=== PATIENT | female | born 1975 | race Two or more races ===

== ENCOUNTER 2021-02-06 06:11 | Day surgery (SDC) | payer BC, OTHER ==
[2021-02-05 12:22] VITALS: BMI 26.3
[2021-02-06] MEDS ORDERED: DEXMEDETOMIDINE HCL 200 MCG/2 ML IVPB ONE (06:45)
[2021-02-06] MEDS ORDERED: ceFAZolin SODIUM 1 GM VIAL ONE ×3 (06:50→17:23)
[2021-02-06] MEDS ORDERED: LIDOCAINE HCL/PF 2% SDV 5ML VIAL ONE ×2 (06:50→07:27)
[2021-02-06] MEDS ORDERED: MIDAZOLAM HCL 2 MG/2 ML SINGLE DOSE VIAL ONE (06:53)
[2021-02-06] MEDS ORDERED: fentaNYL CITRATE 250 MCG/5 ML VIAL ONE (06:53)
[2021-02-06] MEDS ORDERED: KETAMINE HCL 200 MG/20 ML VIAL ONE (06:53)
[2021-02-06] MEDS ORDERED: HEPARIN NA (PORCINE) 5,000 UNITS/ML 1ML VIAL ONE (06:54)
[2021-02-06] MEDS ORDERED: BUPIVACAINE HCL/PF 0.25% (2.5MG/ML) 10 ML VIAL ONE ×2 (07:24→08:41)
[2021-02-06] MEDS ORDERED: EPINEPHrine/PF 1 MG/1 ML (1:1,000) AMPULE ONE (07:25)
[2021-02-06] MEDS ORDERED: BUPIVACAINE LIPOSOME/PF (EXPAREL) 266 MG/20 ML VIAL ONE (07:26)
[2021-02-06] MEDS ORDERED: LIDOCAINE HCL 1%, 10 MG/ML (20ML VIAL) ONE (07:26)
[2021-02-06] MEDS ORDERED: ceFAZolin SODIUM 1 GM VIAL IVPB ONE ×2 (09:00→12:00)
[2021-02-06] MEDS ORDERED: EPHEDRINE SULFATE/0.9% NACL/PF 50 MG/10 ML SYRINGE NR ONE ×2 (09:39→14:12)
[2021-02-06] MEDS ORDERED: BUPIVACAINE HCL/PF 0.25% (2.5MG/ML) 10 ML VIAL IJ ONE (10:52)
[2021-02-06] MEDS ORDERED: BUPIVACAINE LIPOSOME/PF (EXPAREL) 266 MG/20 ML VIAL NR ONE (10:53)
[2021-02-06] MEDS ORDERED: EPINEPHrine/PF 1 MG/1 ML (1:1,000) AMPULE SQ ONE ×3 (10:53→13:56)
[2021-02-06] MEDS ORDERED: ROCURONIUM BROMIDE 50 MG/5 ML SYRINGE ONE (11:53)
[2021-02-06] MEDS ORDERED: NEOSTIGMINE METHYLSULFATE 0.5 MG/ML - 10 ML MDV ONE (11:58)
[2021-02-06] MEDS ORDERED: GLYCOPYRROLATE 0.2 MG/1 ML VIAL ONE (12:00)
[2021-02-06] MEDS ORDERED: PROMETHAZINE HCL 25 MG/1 ML VIAL IVPUSH PRN (15:42)
[2021-02-06] MEDS ORDERED: ACETAMINOPHEN 1000 MG/100 ML VIAL (NON FORMULARY) IVPB ONE (15:42)
[2021-02-06] MEDS ORDERED: ACETAMINOPHEN INJECTION 100 ML IVPB ONE (16:07)
[2021-02-06] MEDS: CEFAZOLIN 1 GM in DEXTROSE 5%-WATER - 50 ML IVPB SCH (17:30)
[2021-02-06] MEDS: LACTATED RINGERS SOLUTION 1,000 ML IV SCH (17:30)
[2021-02-06] MEDS: ONDANSETRON 4 MG/2 ML VIAL IVPB PRN (21:45)
[2021-02-06] MEDS: HEPARIN NA (PORCINE) 5,000 UNITS/ML 1ML VIAL SQ SCH (21:45)
[2021-02-06] MEDS: hydrOXYzine PAMOATE 25 MG CAPSULE (FP) PO SCH (21:46)
[2021-02-06] MEDS: MORPHINE SULFATE 2 MG/ML VIAL IVPUSH PRN (22:25)
[2021-02-07] MEDS ORDERED: ceFAZolin SODIUM 1 GM VIAL ONE ×3 (00:12→11:06)
[2021-02-07] MEDS ORDERED: DEXTROSE 5%-WATER - 50 ML IVPB ONE ×3 (00:12→11:06)
[2021-02-07] MEDS: CEFAZOLIN 1 GM in DEXTROSE 5%-WATER - 50 ML IVPB SCH ×3 (00:18→11:10)
[2021-02-07] MEDS: MORPHINE SULFATE 2 MG/ML VIAL IVPUSH PRN ×3 (02:31→11:09)
[2021-02-07] MEDS: VENLAFAXINE HCL 75 MG E.R. CAPSULES PO SCH (10:46)
[2021-02-07] MEDS: HEPARIN NA (PORCINE) 5,000 UNITS/ML 1ML VIAL SQ SCH ×2 (10:46→22:40)
[2021-02-07] MEDS: ONDANSETRON 4 MG/2 ML VIAL IVPB PRN (13:24)
[2021-02-07] MEDS: oxyCODONE HCL 5 MG TABLET PO PRN (18:11)
[2021-02-07] MEDS ORDERED: PT OWN MED DRAWER 7, Y5N ONE (20:58)
[2021-02-07] MEDS: LACTATED RINGERS SOLUTION 1,000 ML IV SCH (21:54)
[2021-02-07] MEDS: hydrOXYzine PAMOATE 25 MG CAPSULE (FP) PO SCH (22:40)
[2021-02-08] MEDS: oxyCODONE HCL 5 MG TABLET PO PRN ×3 (00:34→10:20)
[2021-02-08 10:17] VITALS: BP 137/83; PULSE 86; TEMP 98.3
[2021-02-08] MEDS ORDERED: PT OWN MED DRAWER 7, Y5N ONE (10:18)
[2021-02-08] MEDS: VENLAFAXINE HCL 75 MG E.R. CAPSULES PO SCH (10:19)
[2021-02-08] MEDS: HEPARIN NA (PORCINE) 5,000 UNITS/ML 1ML VIAL SQ SCH (10:21)
== END 2021-02-08 13:48 | disposition home or self-care (01) ==
LOC: JASUSAT 06:11 → EDBD 08:00 → J6S 18:04 → JASUSAT 02-08 13:48
PROVIDERS: ATTEND Plastic Surgery
PROC: 0J073ZZ Alteration of Back Subcutaneous Tissue and Fascia, Percutaneous Approach (ICD-10-PCS; 2021-02-06)
PROC: 0H0V0ZZ Alteration of Bilateral Breast, Open Approach (ICD-10-PCS; principal; 2021-02-06 08:00)
PROC: 0J080ZZ Alteration of Abdomen Subcutaneous Tissue and Fascia, Open Approach (ICD-10-PCS; 2021-02-06 08:00)
DX: Z41.1 Encounter for cosmetic surgery (principal); N62 Hypertrophy of breast
CPT/HCPCS: 86850; 86900; 86901; 88305-TC; 94010; 94760; J0131; J1644